=== PATIENT | male | born 1950 | race Hispanic/Latino ===

== ENCOUNTER 2016-04-30 02:01 | Day surgery (SDC) | payer OTHER ==
[~2016-04-30] VITALS: Ht 182.9 cm; Wt 92.6 kg
[2016-04-30] VITALS (17 sets, daily range): BP systolic 101–155; BP diastolic 47–82; PULSE 59–77; RESP 12–16; O2SAT 95–98
[~2016-04-30 02:01] MED LIST: LEVO75TA36 PO; LISI-567 PO; METF-496 PO
[2016-04-30] MEDS ORDERED: 0.9% Sodium Chloride 1,000 ML IV ONE (07:59)
--- NOTE | 2016-04-30 10:21 | NUR ---
Admit note- Patient ambulated to [facility] accompanied with . Alert and oriented. NPO since last night. Denies chest pain or shortness of breath. Explained heart cath. procedure and questions answered.
[2016-04-30] MEDS ORDERED: Heparin 1,000 Units/500 mL NS Premix IV ONE (10:53)
[2016-04-30] MEDS ORDERED: Heparin 5,000 Units/500 mL NS Premix IV ONE (10:53)
[2016-04-30] MEDS ORDERED: fentaNYL-PF 50 mCg/mL 2 mL Inj ONE (10:54)
[2016-04-30] MEDS ORDERED: Heparin 1,000 Unit/mL 10 mL Inj ONE (11:27)
[2016-04-30] MEDS ORDERED: Nitroglycerin 50,000 mcg/250 mL D5W Premix IV ONE (11:31)
--- NOTE | 2016-04-30 12:11 | DI95 ---
[address] [address] INTERVENTIONAL CARDIAC CATHETERIZATION PATIENT: LILLIE SANCHEZ : 1950 MR#: [id number] ADMIT: 04/30/2016 JOB ID: [id number] PROCEDURE: Percutaneous intervention on the left anterior descending. INDICATION: Angina and abnormal stress test. PROCEDURAL DETAILS: The reader and the coders are referred to the procedure log for complete details. Briefly, it was done via 6-Uzbek sheath using standard James catheters. A Runthrough wire was used to cross this lesion, which was pre-dilated and then stented with a 3.25 x 23 mm Xience stent delivered at 14 atmospheres with excellent angiographic results. The patient is advised to stay on dual antiplatelet therapy for at least six months post procedure. Further management per full discretion of Dr. Cornejo.
[2016-04-30] MEDS ORDERED: Atropine 1 mg/10 mL (Code) Syringe IVPUSH PRN (14:40)
[2016-04-30] MEDS ORDERED: Sodium Chloride LOK Flush 10 mL Syringe IVFLUSH PRN (14:40)
[2016-04-30] MEDS ORDERED: 0.9% Sodium Chloride 250 ML BOLUS IV PRN (14:40)
[2016-04-30] MEDS ORDERED: Ondansetron 2 mg/mL 2 mL Inj IVPUSH PRN (14:40)
[2016-04-30] MEDS ORDERED: 0.9% Sodium Chloride 400 ML (4 HRS) IV ONE (14:40)
--- NOTE | 2016-04-30 16:46 | NUR ---
Arrived to Unit Pt arrived to [facility] room 2024 at ~1610, report completed at bedside with [facility]ERT RNs. Pt's groin site stable. Pt denied pain, A&OX3, VSS on RA. Pt in normal sinus rhythm in the 70s.
--- NOTE | 2016-04-30 17:02 | NUR ---
Transfer note- Patient returned to [facility] post heart cath. procedure. Denies complaints. Right groin stable with no bleeding or hematoma. Bedrest until 1500. Up at bedside and ambulated without problems. Monitor shows sinus rhythm. Transferred via bed to 2024. Report given to Adryan Pineda RN.
[2016-05-01 00:31] VITALS: BP 134/73; PULSE 71; RESP 14; O2SAT 98
[2016-05-01 04:25] VITALS: BP 133/69; PULSE 74; RESP 14; O2SAT 96
--- NOTE | 2016-05-01 04:32 | NUR ---
Cardiac/Post angio Patients VS stable this shift, denied any pain or chest pain, up to bathroom independently, pleasant and cooperative, right groin site soft with small bruise, IV S.L., uneventful shift, no distress noted, will continue to monitor. Addendum: 05/01/16 at 0437 by MYRIAM MATTHEWS RN Amended: Links added.
--- NOTE | 2016-05-01 04:49 | CS94 ---
[place] [address] DIAGNOSTIC CARDIAC CATHETERIZATION PATIENT: LILLIE SANCHEZ : 1950 MR#: [id number] ADMIT: 04/30/2016 JOB ID: [id number] SERVICE DATE: 04/30/2016 PROCEDURE: 1. Retrograde left heart catheterization. 2. Selective left and right coronary angiography. 3. Left ventricular hemodynamics. INDICATION: The patient was history of exertional angina and abnormal stress test. CONSENT: The patient was explained the risks, benefits and alternatives of the procedure. Informed signed consent was obtained and placed in the chart. DESCRIPTION OF PROCEDURE: The patient was brought to the cath laboratory and placed on the cath table. Both groins were prepped and draped in the usual sterile manner. Lidocaine 1% was infiltrated to achieve topical anesthesia. Using modified standard Seldinger technique, a 6-Swiss arterial sheath was placed in the right femoral artery without any difficulty. The FR4 catheter was used to engage and advanced over the guidewire and placed in the ostium of the left main coronary artery. Multiple views of the coronary artery were obtained in multiple projections. The FR4 catheter was used to engage the right coronary artery. Multiple views of right coronary artery were obtained in multiple projections. The pigtail catheter was advanced over the guidewire and placed in the left ventricle. The left ventricular hemodynamics was obtained. Left ventricular angiography was not performed. FINDINGS: Hemodynamics: Left ventricular end-diastolic pressure is 22-24 mmHg. CORONARY ANGIOGRAPHY: The left main coronary artery is free of any significant disease. It bifurcates into left anterior descending artery and left circumflex coronary artery. The left anterior descending artery, the proximal segment demonstrates an eccentric 80-90% stenosis. Septal perforators are noted arising from the diseased segment. The first and second diagonal branches are identified with no significant disease. The mid and distal LAD demonstrates no significant disease. Left circumflex coronary artery gives off a large obtuse marginal branch. The mid circumflex has an ostia lesion about 60%. The distal left circumflex has no significant disease. The right coronary artery demonstrates no significant disease. FLUOROSCOPY TIME: 3.9 minutes. TOTAL CONTRAST USED: 95 cc. IMPRESSION: 1. High grade stenosis in the proximal LAD. 2. Moderate 60% stenosis in the mid left circumflex. 3. Elevated LVEDP 22-24mmHg. Given high grade stenosis to the LAD, the care of the patient care was transferred to Dr. Skaggs for elective intervention to the proximal LAD. KEENAN
[2016-05-01 04:52] VITALS: PULSE 70
--- NOTE | 2016-05-01 08:47 | PCM.DIMED ---
Discharge Instructions Date of Service May 01, 2016 Dates of Hospitalization 04/30/2016 Discharge Diagnosis Discharge Diagnosis CAD S/P Angioplasty proximal LAD 3.25 x 23mm Xience Stent (JOHNNY) Type 2 DM, Hypertension Right hip Arthroplasty Medication Instructions Take medication as prescribed FELIPA for one year. Atorvastatin 40mg PO Daily Please call the office next week for a follow up appointment. Test Results 90% stenosis of proximal LAD Diet Heart Healthy Activity Other (as tolerated) Call your provider Fever or Chills, Shortness of breath, Chest pain Patient Instructions Follow-up with [facility] in: 1 week Cardiac Rehab: 1 week Gelacio Cornejo MD May 01, 2016 08:47
[2016-05-01] MEDS ORDERED: NITR0.4T SL (08:52)
[2016-05-01] MEDS ORDERED: ASPI81TA3 PO (08:52)
[2016-05-01] MEDS ORDERED: METF-496 PO (08:52)
[2016-05-01] MEDS ORDERED: ATOR40TA69 PO (08:52)
[2016-05-01] MEDS ORDERED: LEVO75TA36 PO (08:52)
[2016-05-01] MEDS ORDERED: LISI-567 PO (08:52)
[2016-05-01] MEDS ORDERED: CLOP75TA28 PO (08:52)
[2016-05-01 09:10] VITALS: BP 144/85; PULSE 78; RESP 16; O2SAT 97
--- NOTE | 2016-05-01 09:26 | DIS ---
[address] [address] DISCHARGE SUMMARY PATIENT: LILLIE SANCHEZ : 1950 MR#: [id number] ADMIT: 04/30/2016 JOB ID: [id number] DIS: 05/01/2016 FINAL DIAGNOSIS: 1. Coronary artery disease. Severe critical proximal LAD stenosis status post angioplasty with a drug-eluting stent, Xience 3.25 x 23 mm. 2. Diabetes. 3. Hypertension. 4. History of hypothyroidism. 5. History of alcohol abuse. 6. Right hip arthroplasty. DISCHARGE MEDICATIONS: 1. Aspirin 81 mg daily. 2. Plavix 75 mg daily. 3. Atorvastatin 40 mg daily. 4. Lisinopril 20 mg daily. 5. Metformin 1000 mg daily. 6. Plavix 75 mg daily. 7. Nitroglycerin 0.4 mg sublingual p.r.n. for chest pains. 8. Metoprolol succinate 25 mg daily. HOSPITAL COURSE: The patient was admitted to the hospital for observation following an elective angioplasty to the proximal LAD. The patient is having symptoms of exertional angina for the last one month. He had a stress test done in the office which demonstrated high-risk indicators. He exercised for 6 minutes which was limited by an anginal chest pain and ST-T changes. His Costa treadmill score was high-risk. Given his history of hypertension and dyslipidemia, we decided to proceed directly with coronary angiography. Coronary angiography revealed a tight 90% stenosis of the proximal LAD which was successfully treated by angioplasty and the deployment of a drug-eluting stent, 3.25 mm x 23 mm. The patient tolerated the procedure well and had no complaints. On the day of discharge, his groin site looked excellent with no swelling. The patient was able to ambulate in the hallway without any discomfort. Post procedure labs were not ordered at the time of admission. Therefore, basic metabolic panel was ordered. The above said medications were ordered as well. PLAN AND INSTRUCTIONS: 1. The patient is to call me on Tuesday morning for an appointment in the office. 2. I do not have a baseline echocardiogram on him. We will obtain an echo in the office. 3. Cardiac rehab. 4. Lifestyle modification and aggressive lipid management.
[2016-05-01 10:02] VITALS: PULSE 90
--- NOTE | 2016-05-01 11:40 | NUR ---
Discharge Pt discharged to home at ~1130 with family after BMP labs came back unremarkable and new prescriptions were called to Pt's pharmacy per Dr. Cornejo. Pt given discharge educational materials on new prescriptions, stent card, and angioplasty/stent booklet. Pt's IV access D/C'd and intact X2. Pt instructed to f/u with Dr. Cornejo 05/07/16 at 1000, phone number provided. Pt verbalized understanding of all discharge instructions. All belongings accompanied Pt at time of discharge.
== END 2016-05-01 11:36 | disposition home or self-care (01) ==
LOC: SOUO 02:01 → PCC 16:19 → SOUO 05-01 11:36
PROVIDERS: ATTEND Internal Medicine Cardiovascular Disease
DX: I25.118 Atherosclerotic heart disease of native coronary artery with other forms of angina pectoris (principal); I10 Essential (primary) hypertension; E11.9 Type 2 diabetes mellitus without complications; Z79.84 Long term (current) use of oral hypoglycemic drugs; E03.9 Hypothyroidism, unspecified
CPT/HCPCS: 36415; 80048; 93005; 93458; 99152; 99153; C1725; C1760; C1769; C1874; C1887; C9600; J1644; J2250; J3010; J7030; Q9967